=== PATIENT | female | born 1985 ===

== ENCOUNTER 2017-02-05 17:10 | Emergency (ER) | payer OTHER ==
--- NOTE | 2017-02-05 18:18 | ER NURSING DOCUMENTATION ---
Nurse's Notes [facility] Name:Lakshmi Duncan Age:31 yrs Sex:Female :1985 Arrival Date:02/05/2017 Time:17:10 Bed1 Private MD: Diagnosis:Ankle Sprain;Lower Leg Contusion Presentation: 02/05 17:15 Acuity: EMIL 4 rh 17:23 Presenting complaint: Patient states: pt was rock climbing and slipped off a leges st falling about 4 feet and landing on her feet. pt states she has left ankle and mayo pain. pt was able to limp out. Transition of care: patient was not received from another setting of care. 17:23 Method Of Arrival: Private Vehicle st Triage Assessment: 17:25 General: Appears in no apparent distress, Behavior is agitated, cooperative. Pain: st Complains of pain in left mayo and anterior aspect of left ankle Pain currently is 7 out of 10 on a pain scale. Unable to use pain scale. pt has troubles giving her pain a number pt states it hurts worst when she puts weight on it but not to any palpation. Neuro: Level of Consciousness is awake, alert, Oriented to person, place, time, event, New Car Get Ready Mechanic are equal bilaterally Moves all extremities. Cardiovascular: No deficits noted. Respiratory: No deficits noted. GI: No deficits noted. Musculoskeletal: Circulation, motion, and sensation intact Range of motion intact in all extremities. Swelling present in left mayo. Injury Description: small wound over left mayo. 17:29 General: pt has pain on walking in the left ankle but not to palpation. . st Historical: - Allergies: No known drug Allergies; - Home Meds: 1. None - PMHx: None; - PSHx: acl repair right knee; - Tetanus: unknown. - Ebola Screening: : Patient denies exposure to infectious person. Patient denies travel to an Ebola-affected area in the 21 days before illness onset. . - Social history: Smoking status: Patient states was never smoker of tobacco. Patient uses alcohol only on a social basis. Patient/guardian denies using marijuana. Screenin:30 Infectious Disease Risk None. Abuse screen: Denies threats or abuse. Denies injuries st from another. pt feels safe at home. Nutritional screening: No deficits noted. Vital Signs: 17:29 BP 117 / 57; Pulse 70; Resp 16; Temp 98.2; Pulse Ox 98% on R/A; Pain 7/10; st [place] Coma Score: 17:37 Eye Response: spontaneous(4). Verbal Response: oriented(5). Motor Response: obeys st commands(6). Total: 15. ED Course: 17:12 Patient arrived in ED. ama 17:15 Triage completed. rh 17:22 Nicolasa Estrada RN is Primary Nurse. st 17:30 Valuables Remains with patient Patient has correct armband on for positive st identification. Bed in low position. 17:39 Florentin Dickey MD is Attending Physician. kathy 17:[address] injury[address] 18:00 Port Xray Completed. pm1 18:16 Hollis wrap to left ankle, left mayo. st Administered Medications: No medications were administered Outcome: 18:10 Discharge ordered by . 18:16 Discharged to home ambulatory. st 18:16 Condition: stable 18:16 Discharge instructions given to patient, Instructed on discharge instructions, follow up and referral plans. medication usage, Ortho Care 18:17 Patient [address] the ED. st Signatures: Nicolasa Estrada RN RN st Meyer, John, MD MD jm McBride, Philisha pm1 Stanley Washington, Reg Reg Sofía Mason
--- NOTE | 2017-02-05 18:18 | ER PHYSICIAN DOCUMENTATION ---
Physician Documentation [facility] Name:Lakshmi Duncan Age:31 yrs Sex:Female :1985 Arrival Date:02/05/2017 Time:17:10 Bed1 Private MD: Florentin Cortes Disposition: 02/05/17 18:10 Discharged to Home/Self Care. Impression: Ankle Sprain, Lower Leg Contusion. - Condition is Good. - Discharge Instructions: CONTUSION, Lower Extremity, Ankle - SPRAIN ANKLE (w/ x-ray). - Medical Reconciliation form form. - Follow up: Private Physician; When: Other; Reason: Continuance of care. - Problem is new. - Symptoms have improved. HPI: 02/05 18:37 This 31 yrs old Unknown Female presents to ER via Private Vehicle with complaints of jm Ankle Injury - L. 18:37 The patient presents with decreased range of motion, an injury. The complaints affect jm the left ankle. Context: The mechanism of injury involved inversion of the affected ankle. Pt was able to hike out of a [place] area. . Historical: - Allergies: No known drug Allergies; - Home Meds: 1. None - PMHx: None; - PSHx: acl repair right knee; - Tetanus: unknown. - Ebola Screening: : Patient denies exposure to infectious person. Patient denies travel to an Ebola-affected area in the 21 days before illness onset. . - Social history: Smoking status: Patient states was never smoker of tobacco. Patient uses alcohol only on a social basis. Patient/guardian denies using marijuana. ROS: 18:37 MS/extremity: Positive for injury or acute deformity, decreased range of motion. jm 18:37 Skin: Positive for swelling. 18:37 Neuro: Negative for gait disturbance, weakness. Exam: 18:37 Constitutional: The patient appears alert, awake. jm 18:37 Musculoskeletal/extremity: Extremities: grossly normal except: noted in the left mayo: contusion, ecchymosis, noted in the anterior aspect of left ankle: decreased ROM, pain, ROM: limited active range of motion, limited passive range of motion, Pulses: are normal with no appreciated deficits, Sensation intact. 18:37 Neuro: Mentation: is normal, Gait: is steady. Vital Signs: 17:29 BP 117 / 57; Pulse 70; Resp 16; Temp 98.2; Pulse Ox 98% on R/A; Pain 7/10; st [place] Coma Score: 17:37 Eye Response: spontaneous(4). Verbal Response: oriented(5). Motor Response: obeys st commands(6). Total: 15. MDM: 17:28 Patient medically screened. 18:38 Differential diagnosis: fracture, sprain. Data reviewed: vital signs, nurses notes, jm radiologic studies, and as a result, I will discharge patient. Test interpretation: by ED physician or midlevel provider: plain radiologic studies. Counseling: I had a detailed discussion with the patient and/or guardian regarding: the historical points, exam findings, and any diagnostic results supporting the discharge/admit diagnosis, radiology results, the need for outpatient follow up, with the patient's primary care provider, a orthopedic surgeon. ED course: No fx noted. Pt can walk. Pt was placed in DAMION wrap and DC'd home. . 02/05 17:46 Order name: Ice Packs; Complete Time: 17:48 kathy Dispensed Medications: No medications were administered Signatures: Nicolasa Estrada, Florentin Aparicio RN, MD MD jm
--- NOTE | 2017-02-09 12:24 | RADIOLOGY REPORT ---
Three views of the left ankle without prior films for comparison demonstrate no displaced fracture. Minimal widening of the medial mortise is noted. Visualized portions of the tibia, talus and fibula appear intact. The joints otherwise appear unremarkable. IMPRESSION: Question minimal widening of the medial mortise. If clinically appropriate further evaluation and/or follow-up including proximal fibula films may be of benefit. The findings were provided to Dr. Dickey on 02/09/2017 at 1200 hours. [facility]
== END 2017-02-05 18:17 | disposition home or self-care (01) ==
LOC: ER 17:10
DX: S96.912A Strain of unspecified muscle and tendon at ankle and foot level, left foot, initial encounter (principal); S80.12XA Contusion of left lower leg, initial encounter; W17.89XA Other fall from one level to another, initial encounter; Y92.828 Other wilderness area as the place of occurrence of the external cause; Y93.31 Activity, mountain climbing, rock climbing and wall climbing
CPT/HCPCS: 99283